=== PATIENT | female | born 1990 | race Caucasian/White ===

== ENCOUNTER 2018-07-30 08:34 | Emergency (ER) | payer MEDICAID ==
[~2018-07-30] VITALS: Ht 154.9 cm; Wt 63.0 kg
[2018-07-30 08:58] VITALS: Ht 154.9 cm; Wt 63.0 kg
[2018-07-30 09:22] VITALS: BP 107/67
== END 2018-07-30 09:22 | disposition home or self-care (01) ==
LOC: ED 08:34
DX: K12.0 Recurrent oral aphthae (principal); Z98.51 Tubal ligation status; Z98.890 Other specified postprocedural states

== ENCOUNTER 2019-01-03 17:46 | Emergency (ER) | payer MEDICAID ==
[~2019-01-03] VITALS: Ht 154.9 cm; Wt 62.3 kg
[2019-01-03 17:55] VITALS: Ht 154.9 cm; Wt 62.3 kg
[2019-01-03 19:40] VITALS: BP 99/70
== END 2019-01-03 19:40 | disposition home or self-care (01) ==
LOC: ED 17:46
DX: R11.2 Nausea with vomiting, unspecified (principal); R42 Dizziness and giddiness; Z98.51 Tubal ligation status; Z98.890 Other specified postprocedural states
CPT/HCPCS: J2405; J7030

== ENCOUNTER 2019-01-23 10:50 | Emergency (ER) | payer MEDICAID ==
[~2019-01-23] VITALS: Ht 154.9 cm; Wt 63.5 kg
[2019-01-23 11:34] VITALS: Ht 154.9 cm; Wt 63.5 kg
[2019-01-23 12:55] VITALS: BP 132/73
== END 2019-01-23 12:55 | disposition home or self-care (01) ==
LOC: ED 10:50
DX: R21 Rash and other nonspecific skin eruption (principal); T78.1XXA Other adverse food reactions, not elsewhere classified, initial encounter; L50.0 Allergic urticaria; X58.XXXA Exposure to other specified factors, initial encounter
CPT/HCPCS: Q0163

== ENCOUNTER 2019-01-31 16:25 | Emergency (ER) | payer MEDICAID ==
[~2019-01-31] VITALS: Ht 154.9 cm; Wt 63.0 kg
[2019-01-31 16:29] VITALS: BP 108/63; Ht 154.9 cm; Wt 63.0 kg
== END 2019-01-31 17:28 | disposition home or self-care (01) ==
LOC: ED 16:25
DX: L03.114 Cellulitis of left upper limb (principal); Z98.890 Other specified postprocedural states; Z98.51 Tubal ligation status

== ENCOUNTER 2019-02-01 18:51 | Emergency (ER) | payer MEDICAID ==
[~2019-02-01] VITALS: Ht 154.9 cm; Wt 62.8 kg
[2019-02-01 19:28] VITALS: Ht 154.9 cm; Wt 62.8 kg
[2019-02-01 20:41] VITALS: BP 101/65
== END 2019-02-01 20:41 | disposition home or self-care (01) ==
LOC: ED 18:51
DX: L03.113 Cellulitis of right upper limb (principal); Z98.51 Tubal ligation status; Z98.890 Other specified postprocedural states

== ENCOUNTER 2019-02-07 20:58 | Emergency (ER) | payer MEDICAID ==
[~2019-02-07] VITALS: Ht 154.9 cm; Wt 62.1 kg
[2019-02-07 21:25] VITALS: Ht 154.9 cm; Wt 62.1 kg
[2019-02-07 23:24] VITALS: BP 91/59
== END 2019-02-07 23:24 | disposition home or self-care (01) ==
LOC: ED 20:58
DX: I80.8 Phlebitis and thrombophlebitis of other sites (principal)

== ENCOUNTER 2019-02-18 02:44 | Emergency (ER) | payer MEDICAID ==
[~2019-02-18] VITALS: Ht 154.9 cm; Wt 63.6 kg
[2019-02-18 02:48] VITALS: Ht 154.9 cm; Wt 63.6 kg
[2019-02-18 06:37] VITALS: BP 102/65
== END 2019-02-18 06:37 | disposition home or self-care (01) ==
LOC: ED 02:44
DX: L03.114 Cellulitis of left upper limb (principal); F11.10 Opioid abuse, uncomplicated; Z98.51 Tubal ligation status; Z98.890 Other specified postprocedural states
CPT/HCPCS: Q0092

== ENCOUNTER 2019-02-20 15:24 | Emergency (ER) | payer MEDICAID ==
[~2019-02-20] VITALS: Ht 154.9 cm; Wt 63.0 kg
[2019-02-20 15:31] VITALS: Ht 154.9 cm; Wt 63.0 kg
[2019-02-20 17:41] VITALS: BP 103/53
== END 2019-02-20 17:41 | disposition home or self-care (01) ==
LOC: ED 15:24
DX: L03.114 Cellulitis of left upper limb (principal); L03.113 Cellulitis of right upper limb; F17.210 Nicotine dependence, cigarettes, uncomplicated; Z98.51 Tubal ligation status; Z98.890 Other specified postprocedural states

== ENCOUNTER 2019-02-26 05:14 | Emergency (ER) | payer MEDICAID ==
[~2019-02-26] VITALS: Ht 160 cm; Wt 63.5 kg
[2019-02-26 05:15] VITALS: Ht 160 cm; Wt 63.5 kg
[2019-02-26 06:35] VITALS: BP 104/51
== END 2019-02-26 06:35 | disposition home or self-care (01) ==
LOC: ED 05:14
DX: T78.40XA Allergy, unspecified, initial encounter (principal); F11.10 Opioid abuse, uncomplicated; Z98.51 Tubal ligation status; X58.XXXA Exposure to other specified factors, initial encounter
CPT/HCPCS: J1200; J7512

== ENCOUNTER 2019-07-13 20:09 | Emergency (ER) | payer OTHER ==
[~2019-07-13] VITALS: Ht 154.9 cm; Wt 63.5 kg
[2019-07-13 20:13] VITALS: Ht 154.9 cm; Wt 63.5 kg
[2019-07-13 21:46] LABS: BASOPHIL % 0.1 % (0-2); PLATELET COUNT 202 x10^3mcL (130-400); RED CELL DISTRIBUTION WIDTH 13.4 % (11.5-14.5)
[2019-07-13 21:59] LABS: CALCIUM 8.7 mg/dL (8.5-10.1); CARBON DIOXIDE 29.2 mmol/L (21-32); CHLORIDE SERUM 105 mmol/L (98-107); CREATININE SERUM 0.7 mg/dL (0.6-1.0); GFR1 > 60 mL/min; GLUCOSE SERUM 93 mg/dL (74-106); SODIUM SERUM 142 mmol/L (136-145)
[2019-07-13 22:04] LABS: ALKALINE PHOSPHATASE 51 U/L (46-116); ALT/SGPT 70 U/L (14-59); AST/SGOT 32 U/L (15-37); BILIRUBIN TOTAL 0.3 mg/dL (0.20-1.00); LIPASE 118 IU/L (73-393)
[2019-07-14 00:15] VITALS: BP 102/53
== END 2019-07-14 00:15 | disposition home or self-care (01) ==
LOC: ED 20:09
PROVIDERS: Emergency Medicine
DX: R10.33 Periumbilical pain (principal); Z98.890 Other specified postprocedural states
CPT/HCPCS: 36415

== ENCOUNTER 2019-10-16 12:43 | Emergency (ER) | payer MEDICAID ==
[~2019-10-16] VITALS: Ht 154.9 cm; Wt 60.3 kg
[2019-10-16 12:49] VITALS: BP 109/68; Ht 154.9 cm; Wt 60.3 kg
== END 2019-10-16 13:24 | disposition home or self-care (01) ==
LOC: ED 12:43
DX: K04.7 Periapical abscess without sinus (principal); K12.0 Recurrent oral aphthae; Z98.890 Other specified postprocedural states
CPT/HCPCS: 99406

== ENCOUNTER 2019-10-25 22:22 | Emergency (ER) | payer MEDICAID ==
[~2019-10-25] VITALS: Ht 154.9 cm; Wt 61.7 kg
[2019-10-25 22:31] VITALS: BP 119/71; Ht 154.9 cm; Wt 61.7 kg
== END 2019-10-25 23:54 | disposition home or self-care (01) ==
LOC: ED 22:22
DX: K59.00 Constipation, unspecified (principal); F11.10 Opioid abuse, uncomplicated; Z98.51 Tubal ligation status; Z98.890 Other specified postprocedural states

== ENCOUNTER 2020-03-06 21:36 | Emergency (ER) | payer SELFPAY ==
[~2020-03-06] VITALS: Ht 154.9 cm; Wt 65.8 kg
[2020-03-06 21:59] VITALS: BP 99/44; Ht 154.9 cm; Wt 65.8 kg
== END 2020-03-06 23:24 | disposition home or self-care (01) ==
LOC: ED 21:36
DX: S66.912A Strain of unspecified muscle, fascia and tendon at wrist and hand level, left hand, initial encounter (principal); Z98.51 Tubal ligation status; Z98.890 Other specified postprocedural states; X58.XXXA Exposure to other specified factors, initial encounter; Y93.89 Activity, other specified; Y92.89 Other specified places as the place of occurrence of the external cause; Y99.8 Other external cause status
CPT/HCPCS: Q0092

== ENCOUNTER 2020-03-08 09:34 | Emergency (ER) | payer SELFPAY ==
[~2020-03-08] VITALS: Ht 154.9 cm; Wt 65.8 kg
[2020-03-08 09:41] VITALS: Ht 154.9 cm; Wt 65.8 kg
[2020-03-08 11:56] VITALS: BP 106/72
== END 2020-03-08 11:56 | disposition home or self-care (01) ==
LOC: ED 09:34
DX: L02.415 Cutaneous abscess of right lower limb (principal)
CPT/HCPCS: 82962; 90715; J2001

== ENCOUNTER 2020-05-04 20:53 | Emergency (ER) | payer SELFPAY ==
[~2020-05-04] VITALS: Ht 154.9 cm; Wt 67.1 kg
[2020-05-04 20:56] VITALS: Ht 154.9 cm; Wt 67.1 kg
[2020-05-04 21:54] VITALS: BP 102/67
== END 2020-05-04 21:54 | disposition home or self-care (01) ==
LOC: ED 20:53
DX: L02.413 Cutaneous abscess of right upper limb (principal)

== ENCOUNTER 2020-05-12 21:17 | Emergency (ER) | payer MEDICAID ==
[~2020-05-12] VITALS: Ht 154.9 cm; Wt 66.3 kg
[2020-05-12 21:34] VITALS: Ht 154.9 cm; Wt 66.3 kg
[2020-05-12 23:20] VITALS: BP 100/64
== END 2020-05-12 23:20 | disposition home or self-care (01) ==
LOC: ED 21:17
DX: L02.416 Cutaneous abscess of left lower limb (principal)
CPT/HCPCS: J0696; J2001